=== PATIENT | female | born 1990 | race American Indian/Alaskan Native ===

== ENCOUNTER 2020-06-12 10:24 | Outpatient (CLI) | payer OTHER | END 2020-06-12 10:56 | disposition home or self-care (01) | LOC: NST 10:24 | PROVIDERS: ATTEND Obstetrics & Gynecology Maternal & Fetal Medicine | DX: Z34.03 Encounter for supervision of normal first pregnancy, third trimester (principal) ==

== ENCOUNTER 2020-06-19 10:14 | Inpatient (IN) | payer OTHER ==
[~2020-06-19] VITALS: Ht 162.6 cm; Wt 100.7 kg
[2020-06-19] MEDS ORDERED: PRENATAL CAPLE1 EAC1 PO (11:49)
[2020-06-20] MEDS ORDERED: FAMOTIDINE20 MG (11:30)
[2020-06-22] MEDS ORDERED: KETO10TA2 PO (10:44)
[2020-06-22] MEDS ORDERED: OXYC1TAB9 PO (10:44)
== END 2020-06-22 18:11 | disposition home or self-care (01) | DRG 788 ==
LOC: LDR 10:14 → OB/GYN 10:14 → O/R 19:46 → OB/GYN 19:58
PROVIDERS: ADMIT Obstetrics & Gynecology; ATTEND Obstetrics & Gynecology
PROC: 3E033VJ Introduction of Other Hormone into Peripheral Vein, Percutaneous Approach (ICD-10-PCS; 2020-06-19)
PROC: 10D00Z1 Extraction of Products of Conception, Low, Open Approach (ICD-10-PCS; principal; 2020-06-19 17:00)
DX: O41.03X0 Oligohydramnios, third trimester, not applicable or unspecified (principal); O36.5930 Maternal care for other known or suspected poor fetal growth, third trimester, not applicable or unspecified; Z3A.33 33 weeks gestation of pregnancy; Z37.0 Single live birth; Z20.822 Contact with and (suspected) exposure to COVID-19

== ENCOUNTER 2023-04-04 08:01 | Outpatient (CLI) | payer OTHER ==
[~2023-04-04 08:01] MED LIST: FAMOTIDINE20 MG; KETO10TA2 PO; OXYC1TAB9 PO; PRENATAL CAPLE1 EAC1 PO
== END 2023-04-04 08:41 | disposition home or self-care (01) ==
LOC: NST 08:01
PROVIDERS: ATTEND Obstetrics & Gynecology Gynecology
DX: Z34.83 Encounter for supervision of other normal pregnancy, third trimester (principal)

== ENCOUNTER 2023-04-21 07:19 | Outpatient (CLI) | payer OTHER | END 2023-04-21 08:18 | disposition home or self-care (01) | LOC: NST 07:19 | PROVIDERS: ATTEND Obstetrics & Gynecology Gynecology | DX: Z34.83 Encounter for supervision of other normal pregnancy, third trimester (principal) ==

== ENCOUNTER 2023-05-12 10:45 | Inpatient (IN) | payer OTHER ==
[~2023-05-12] VITALS: Ht 162.6 cm; Wt 3.2 kg
[2023-05-12 13:27] LABS: HEMATOCRIT 37.5 % (36.0-45.00); MEAN CELL VOLUME 90.4 fL (80.00-100.00); MEAN CORPUSCULAR HEMOGLOBIN 31.4 pg (27.00-32.0); MEAN CORPUSCULAR HGB CONC 34.7 g/dl (32.0-36.0); PLATELET COUNT 281 K/uL (150-450); RED BLOOD COUNT 4.15 M/uL (4.00-6.00); RED CELL DISTRIBUTION WIDTH 14.2 % (11.5-14.5)
[2023-05-12 13:45] LABS: INR < 0.93; PARTIAL THROMBOPLASTIN TIME 25.7 SECONDS (22.0-34.0); PROTHROMBIN TIME 9.6 SECONDS (9.0-11.5)
[2023-05-12 13:49] LABS: BILIRUBIN TOTAL 0.31 mg/dL (0.3-1.2); CREATININE SERUM 0.67 mg/dL (0.55-1.02); GFR 102.66; GLOBULINA 3.7 G/DL (2.4-3.5); POTASSIUM 4.02 mEq/L (3.5-5.1); TOTAL PROTEIN 6.7 gm/dL (6.4-8.2)
[2023-05-18] MEDS ORDERED: OXYTOCIN 10 UNITS/ML VIAL ONE ×2 (07:04→11:23)
[2023-05-18] MEDS ORDERED: ERYTHROMYCIN BASE 3.5 GM OINT...G. OP ONE (07:04)
[2023-05-18] MEDS ORDERED: CEFAZOLIN SODIUM 1,000 MG VIAL ONE (07:22)
[2023-05-18] MEDS ORDERED: CITRIC ACID/SODIUM CITRATE 30 ML BLIST.PACK PO ONE (07:22)
[2023-05-18] MEDS ORDERED: CEFAZOLIN SODIUM 1,000 MG VIAL IV SCH (09:45)
[2023-05-18] MEDS ORDERED: OXYTOCIN 10 UNITS/ML VIAL IV ONE (09:45)
[2023-05-18] MEDS ORDERED: CITRIC ACID/SODIUM CITRATE 30 ML BLIST.PACK PO SCH (09:45)
[2023-05-18] MEDS ORDERED: ERYTHROMYCIN BASE 1 GM TUBE OP ONE (09:45)
[2023-05-18] MEDS ORDERED: OXYTOCIN 50,000 ML IV ONE (11:00)
[2023-05-18] MEDS ORDERED: MORPHINE SULFATE 4 MG/ML CARTRIDGE IV PRN (11:00)
[2023-05-18] MEDS ORDERED: RINGERS SOLUTION,LACTATED 1,000 ML IV SCH (11:00)
[2023-05-18] MEDS ORDERED: KETOROLAC TROMETHAMINE 30 MG VIAL ONE (11:23)
[2023-05-18] MEDS ORDERED: KETOROLAC TROMETHAMINE 30 MG VIAL IV SCH (12:00)
[2023-05-18] MEDS ORDERED: RINGERS LACTATED IV SCH (12:30)
[2023-05-18] MEDS ORDERED: OXYTOCIN IV SCH (12:30)
[2023-05-18] MEDS ORDERED: ONDANSETRON HCL 2 MG/ML VIAL IV SCH (17:00)
[2023-05-18] MEDS ORDERED: GABAPENTIN 300 MG CAPSULE PO SCH (17:00)
[2023-05-19] MEDS ORDERED: ACETAMINOPHEN 500 MG GEL..CAP PO SCH (06:00)
[2023-05-19 06:54] LABS: HEMATOCRIT 29.9 % (36.0-45.00); HEMOGLOBIN 10.3 g/dL (12.0-15.00); MEAN CELL VOLUME 91.2 fL (80.00-100.00); MEAN CORPUSCULAR HEMOGLOBIN 31.5 pg (27.00-32.0); MEAN CORPUSCULAR HGB CONC 34.5 g/dl (32.0-36.0); PLATELET COUNT 203 K/uL (150-450); RED BLOOD COUNT 3.28 M/uL (4.00-6.00); RED CELL DISTRIBUTION WIDTH 13.8 % (11.5-14.5)
[2023-05-19] MEDS ORDERED: FF) RHO(D) IMMUNE GLOBULIN (POM) IM ONE (08:00)
[2023-05-19] MEDS ORDERED: OxyCODONE HCL 5 MG TABLET (ROXICODONE) PO PRN (08:00)
[2023-05-19] MEDS ORDERED: OxyCODONE HCL/APAP UD (PERCOCET) PO PRN (08:00)
[2023-05-19] MEDS ORDERED: KETOROLAC TROMETHAMINE 10 MG TABLET PO SCH (08:00)
[2023-05-19] MEDS ORDERED: IBUprofen 600 MG TABLET PO SCH (18:39)
== END 2023-05-20 16:09 | disposition home or self-care (01) | DRG 788 ==
LOC: OB/GYN 05-18 05:00 → O/R 05-18 05:00 → SURH 05-18 07:00 → OB/GYN 05-18 09:01 → SURH 05-18 10:45 → OB/GYN 05-20 16:09
PROVIDERS: ADMIT Obstetrics & Gynecology; ATTEND Obstetrics & Gynecology
PROC: 4A1HXCZ Monitoring of Products of Conception, Cardiac Rate, External Approach (ICD-10-PCS; 2023-05-18)
PROC: 10D00Z1 Extraction of Products of Conception, Low, Open Approach (ICD-10-PCS; principal; 2023-05-18 07:00)
DX: O34.211 Maternal care for low transverse scar from previous cesarean delivery (principal); Z3A.39 39 weeks gestation of pregnancy; Z37.0 Single live birth; Z20.822 Contact with and (suspected) exposure to COVID-19